=== PATIENT | male | born 1950 | race Caucasian/White ===

== ENCOUNTER 2018-03-03 15:13 | Emergency (ER) | payer OTHER ==
[~2018-03-03] VITALS: Ht 188 cm; Wt 136.1 kg
[~2018-03-03 15:13] MED LIST: DOXYCYCLINE 10100 MG PO; PAXIL10 MG PO; PAXIL40 MG PO; RISPERDAL M-TAB4 MG PO; RISPERDAL4 MG PO; VENTOLIN HFA INH8 GM IH
[2018-03-03 15:17] VITALS: BP 150/78
[2018-03-03] MEDS ORDERED: RISPERDAL2 MG PO ×2 (15:22→15:43)
[2018-03-03] MEDS ORDERED: LISINOPRIL10 MG PO (15:22)
[2018-03-03] MEDS ORDERED: LIPITOR10 MG (15:22)
[2018-03-03] MEDS ORDERED: HYTRIN 1 MG CAP1 MG PO (15:23)
[2018-03-03] MEDS ORDERED: PAXIL 20 MG TAB20 M1 PO (15:43)
== END 2018-03-03 16:03 | disposition home or self-care (01) ==
LOC: M.ERS 15:13
DX: F41.9 Anxiety disorder, unspecified (principal); R11.10 Vomiting, unspecified; Z76.0 Encounter for issue of repeat prescription; K21.9 Gastro-esophageal reflux disease without esophagitis; I10 Essential (primary) hypertension